=== PATIENT | female | born 1975 | race Caucasian/White ===

== ENCOUNTER 2022-03-19 10:59 | Inpatient (IN) | payer BC ==
[~2022-03-19] VITALS: Ht 167.6 cm; Wt 109.8 kg
[2022-03-19] MEDS ORDERED: ACETAMINOPHEN 325MG TABLET PO STA (14:40)
[2022-03-19] MEDS ORDERED: AMLODIPINE 10MG TABLET PO ONE (15:30)
[2022-03-19] MEDS ORDERED: REGADENOSON 0.4 MG/5 ML IV SCH (15:45)
[2022-03-19 15:57] LABS: BASOPHILS % 0.6 % (0.0-2.0); EOSINOPHILS % 1.5 % (0.0-5.0); HEMATOCRIT. 30.9 % (36.0-48.0); MEAN CORPUSCULAR HEMOGLOBIN 23.1 pg (28.0-32.0); MEAN PLATELET VOLUME 8.4 fl (7.4-10.4); MONOCYTES % 6.6 % (2.0-8.0); NEUTROPHILS % 67.3 % (40.0-76.0); PLATELET 400 x1000/uL (130-400); RED BLOOD CELL COUNT 4.35 mill/uL (4.2-5.4); RED CELL DISTRIBUTION WIDTH 16.4 % (11.6-14.6)
[2022-03-19 16:05] LABS: CHLORIDE 106 mEq/L (98-107)
[2022-03-19 16:19] LABS: HDL CHOLESTEROL 50 mg/dL (40-59); LDL CHOLESTEROL 99 mg/dL (5-100)
[2022-03-19] MEDS: AMLODIPINE 10MG TABLET PO SCH (17:00)
[2022-03-19] MEDS ORDERED: MAGNESIUM/ALUMINUM HYDROXIDE/SIMETHICONE 30ML UDC PO PRN (17:00)
[2022-03-19] MEDS ORDERED: IPRATROPIUM/ALBUTEROL 0.5-3(2.5)MG/3ML NEB HHN PRN (17:00)
[2022-03-19] MEDS ORDERED: DOCUSATE SODIUM 100MG CAPSULE PO PRN (17:00)
[2022-03-19] MEDS ORDERED: ONDANSETRON HCL 4MG/2ML INJ IV PRN (17:00)
[2022-03-19] MEDS ORDERED: ACETAMINOPHEN 325MG TABLET PO PRN ×2 (17:00)
[2022-03-19] MEDS ORDERED: CLONIDINE 0.1MG TABLET PO PRN (17:00)
[2022-03-19] MEDS ORDERED: HYDROCODONE/ACETAMINOPHEN 5/325MG TABLET PO PRN (17:00)
[2022-03-19] MEDS ORDERED: GUAIFENESIN 200MG/10ML SUGAR FREE UDC PO PRN (17:00)
[2022-03-19] MEDS: LOSARTAN POTASSIUM 25 MG TABLET PO SCH (17:19)
[2022-03-19] MEDS ORDERED: ENOXAPARIN 40MG/0.4ML SYR SUBCUT SCH (18:00)
[2022-03-19 21:00] VITALS: BP 180/86
[2022-03-19 22:00] VITALS: BP 137/86
[2022-03-20] VITALS (8 sets, daily range): BP systolic 136–158; BP diastolic 64–93
[2022-03-20] MEDS: PANTOPRAZOLE 40MG DR TABLET PO SCH ×2 (05:18→15:08)
[2022-03-20 06:53] LABS: BASOPHILS % 0.5 % (0.0-2.0); EOSINOPHILS % 1.8 % (0.0-5.0); HEMATOCRIT. 29.7 % (36.0-48.0); HEMOGLOBIN. 9.6 g/dL (12.0-16.0); LYMPHOCYTES % 24.6 % (20.0-50.0); MEAN CORPUSCULAR HEMOGLOBIN 23.2 pg (28.0-32.0); MEAN CORPUSCULAR VOLUME 71.4 fL (81.0-99.0); MEAN PLATELET VOLUME 8.3 fl (7.4-10.4); MONOCYTES % 7.8 % (2.0-8.0); NEUTROPHILS % 65.3 % (40.0-76.0); PLATELET 345 x1000/uL (130-400); RED BLOOD CELL COUNT 4.16 mill/uL (4.2-5.4); RED CELL DISTRIBUTION WIDTH 16.4 % (11.6-14.6)
[2022-03-20 07:13] LABS: CHLORIDE 105 mEq/L (98-107)
[2022-03-20 07:29] LABS: PHOSPHORUS 3.3 mg/dL (2.5-4.9); T4 FREE 1.04 ng/dL (0.76-1.46); TOTAL IRON BINDING CAPACITY 467 ug/dL (250-450)
[2022-03-20 07:52] LABS: FERRITIN < 5 ng/mL (10-291)
[2022-03-20] MEDS ORDERED: DEXT 5%/0.45% NACL 1000ML 1,000 ML IV ONE (08:30)
[2022-03-20] MEDS ORDERED: NALOXONE HCL 0.4MG/ML VIAL IV PRN (08:45)
[2022-03-20 08:52] LABS: VITAMIN B12 SERUM 365 pg/mL (211-911)
[2022-03-20] MEDS: AMLODIPINE 10MG TABLET PO SCH (15:08)
[2022-03-20] MEDS: LOSARTAN POTASSIUM 25 MG TABLET PO SCH (15:08)
[2022-03-20] MEDS ORDERED: LEVOTHYROXINE SODIUM 100 MCG/ VIAL IV SCH (15:30)
[2022-03-20] MEDS ORDERED: ENOXAPARIN 30MG/0.3ML SYR SUBCUT SCH (18:00)
== END 2022-03-20 18:50 | disposition home or self-care (01) | DRG 760 ==
LOC: ER 11:07 → 7WST 17:05 → EDBEDREQ 17:13 → EDBEDREQTM 17:13
PROVIDERS: ADMIT Internal Medicine; ATTEND Internal Medicine
DX: N92.0 Excessive and frequent menstruation with regular cycle (principal); I21.A1 Myocardial infarction type 2; D50.9 Iron deficiency anemia, unspecified; E66.01 Morbid (severe) obesity due to excess calories; I10 Essential (primary) hypertension; E03.9 Hypothyroidism, unspecified; Z20.822 Contact with and (suspected) exposure to COVID-19; K21.9 Gastro-esophageal reflux disease without esophagitis; E66.8 Other obesity; Z68.39 Body mass index [BMI] 39.0-39.9, adult; Z79.899 Other long term (current) drug therapy; Z86.16 Personal history of COVID-19; Z81.8 Family history of other mental and behavioral disorders; Z83.3 Family history of diabetes mellitus
CPT/HCPCS: 36415; 71045; 76536; 78452; 80048; 80053; 80061; 82306; 82607; 82728; 82746; 83036; 83540; 83550; 83735; 83880; 84100; 84439; 84443; 84484; 85025; 85379; 87426; 93005; 93017; 93306; 93970; 99285; A9500; J1650; J2785; J3490